=== PATIENT | male | born 1995 | race Caucasian/White ===

== ENCOUNTER 2022-06-22 16:22 | Emergency (ER) | payer MEDICAID ==
[2022-06-22 16:30] VITALS: BP 131/81
--- NOTE | 2022-06-22 16:39 | ED Physician Documentation ---
History of Present Illness - Stated complaint Stated Complaint: MED REFILL - Chief complaint Chief Complaint: General - History obtained from History obtained from: Patient - History of Present Illness Timing: Today Pain level max: 0 Pain level now: 0 - Additonal information Additional information: 26-year-old male, living at [facility], presents to the emergency department requesting a refill of his Abilify, 10 mg p.o. daily and albuterol. He has been out of these medications for several weeks. He states that he would like to be restarted on the medications. He is not having hallucinations. No suicidal or homicidal ideation. Currently asymptomatic. He states he is moving to [place] next week. Review of Systems Constitutional: denies: Fever Cardiac: denies: Chest pain / pressure Respiratory: denies: Cough Psychiatric: denies: Suicidal, Homicidal, Hallucinations PD PAST MEDICAL HISTORY - Past Medical History Past Medical History: Yes Respiratory: Asthma Psych: Schizophrenia - Past Surgical History Past Surgical History: No - Present Medications Home Medications: Ambulatory Orders Medication Instructions Recorded Confirmed ARIPiprazole [Abilify] 10 mg PO DAILY #28 tablet 06/22/22 Albuterol Sulf [Ventolin Hfa 1 - 2 puffs INH Q4HR PRN #1 each 06/22/22 Inhaler] - Allergies Allergies/Adverse Reactions: Allergies Allergy/AdvReac Type Severity Reaction Status Date / Time Penicillins Allergy Anaphylaxis Verified 06/22/22 16:30 - Living Situation Living Arrangement: reports: correction PD ED PE NORMAL - Vitals Vital signs reviewed: Yes - General General: Alert and oriented X 3, No acute distress - HEENT HEENT: PERRL, Moist mucous membranes - Neck Neck: Supple, no meningeal sign - Cardiac Cardiac: RRR - Respiratory Respiratory: No respiratory distress, Clear bilaterally - Derm Derm: Warm and dry - Neuro Neuro: Alert and oriented X 3 - Psych Psych: Normal mood, Normal affect Results - Vitals Vitals: Vital Signs - 24 hr 06/22/22 16:26 Temperature 36.8 C Heart Rate 91 Respiratory 18 Rate Blood Pressure 131/81 H O2 Saturation 99 Oxygen O2 Source Room air PD Medical Decision Making - ED course Complexity details: considered differential, d/w patient ED course: Patient is requesting a refill of his Abilify and albuterol. He is asymptomatic. We will give him 2 weeks of Abilify as he is moving to [place] and this will allow him to follow-up with his services engineer to get placed back on his regular medications. No emergency medical condition at this time Patient counseled regarding signs and symptoms for which I believe and urgent re- evaluation would be necessary. Patient with good understanding of and agreement to plan and is comfortable going home at this time This document was made in part using voice recognition software. While efforts are made to proofread this document, sound alike and grammatical errors may occur. Departure - Departure Disposition: 01 Home, Self Care Clinical Impression: Schizophrenia Qualifiers: Schizophrenia type: unspecified Qualified Code(s): F20.9 - Schizophrenia, unspecified Asthma Qualifiers: Asthma severity: unspecified severity Asthma persistence: unspecified Asthma complication type: unspecified Qualified Code(s): J45.909 - Unspecified asthma, uncomplicated Condition: Good Instructions: ED Reactive Airway Disease, ED Schizophrenia General Follow-Up: your,doctor in 1 week [Other] Prescriptions: Albuterol Sulf [Ventolin Hfa Inhaler] 1 - 2 puffs INH Q4HR PRN #1 each PRN Reason: Shortness Of Air/Wheezing ARIPiprazole [Abilify] 10 mg PO DAILY #28 tablet Comments: Your prescriptions were sent to the [facility] pharmacy. Please pick them up today. Please follow-up with your doctor for further care. Return if you worsen. Discharge Date/Time: 06/22/22 16:53
== END 2022-06-22 16:53 | disposition home or self-care (01) ==
LOC: ED 16:22
DX: Z76.0 Encounter for issue of repeat prescription (principal); F20.9 Schizophrenia, unspecified; J45.909 Unspecified asthma, uncomplicated
CPT/HCPCS: 99282; 99283

== ENCOUNTER 2022-06-22 18:23 | Emergency (ER) | payer MEDICAID, OTHER ==
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
[2022-06-22 19:27] VITALS: BP 132/76
== END 2022-06-22 19:26 | disposition home or self-care (01) ==
LOC: ED 18:23
DX: Z76.89 Persons encountering health services in other specified circumstances (principal); F20.9 Schizophrenia, unspecified; Z76.0 Encounter for issue of repeat prescription; J45.909 Unspecified asthma, uncomplicated
CPT/HCPCS: 99281; 99283

== ENCOUNTER 2023-05-12 10:33 | Outpatient (CLI) | payer SELFPAY | END 2023-05-12 10:34 | disposition EMS.NT | LOC: EMS 10:33 | DX: R10.2 Pelvic and perineal pain (principal) ==

== ENCOUNTER 2023-05-15 13:46 | Outpatient (CLI) | payer OTHER | END 2023-05-15 13:47 | disposition EMS.NT | LOC: EMS 13:46 | DX: R10.9 Unspecified abdominal pain (principal); Z59.00 Homelessness unspecified ==